=== PATIENT | male | born 1990 | race Caucasian/White ===

== ENCOUNTER → 2016-12-23 | Outpatient (CLI) | payer SELFPAY ==
[2016-12-23 08:45] LABS: BASOPHILS # (AUTO) 0.09 10*3/UL; EOSINOPHILS # (AUTO) 0.08 10*3/UL; EOSINOPHILS % (AUTO) 1.8 % (0-8); HEMATOCRIT 47.5 % (42.0-52.0); HEMOGLOBIN 16.7 g/dL (14.0-18.0); LYMPHOCYTES # (AUTO) 1.56 10*3/uL; MEAN CORPUSCULAR HEMOGLOBIN 34.9 PG (27-31); MEAN CORPUSCULAR HGB CONC 35.2 g/dL (33-37); MEAN CORPUSCULAR VOLUME 99.2 FL (80-90); MEAN PLATELET VOLUME 9.5 FL (7.4-12.2); MONOCYTES # (AUTO) 0.48 10*3/UL (0.3-0.8); MONOCYTES % (AUTO) 10.8 % (5-15); NEUTROPHILS # (AUTO) 2.22 10*3/UL; NEUTROPHILS % (AUTO) 50.1 % (50-80); RED BLOOD COUNT 4.79 10^6/uL (4.70-6.10)
[2016-12-23 08:48] LABS: PLATELET MORPHOLOGY COMMENT NORMAL MORPHOLOGY (NORM); RBC MORPHOLOGY COMMENT NORMAL MORPHOLOGY (NORM); WBC MORPHOLOGY COMMENT NORMAL MORPHOLOGY (NORM)
[2016-12-23 08:51] LABS: BLOOD UREA NITROGEN 19 mg/dL (7-22); BUN/CREATININE RATIO 17.27 (6-20); CALCIUM 8.9 mg/dL (8.7-10.7); EST GLOMERULAR FILTRATION > 60 (>60 ml/min/1.73m(2))
== END ==
LOC: MOB LAB 08:17
DX: R11.2 Nausea with vomiting, unspecified (principal)
CPT/HCPCS: 36415; 80048; 85025